=== PATIENT | female | born 1995 | race Caucasian/White ===

== ENCOUNTER 2020-06-03 14:43 | Emergency (ER) | payer OTHER ==
[2020-06-03] MEDS ORDERED: ONDANSETRON HCL INJ/PF 4 MG/2 ML SDV IV ONE (16:34)
[2020-06-03] MEDS ORDERED: NORMAL SALINE 1000 ML 1,000 ML IV ONE (16:35)
--- NOTE | 2020-06-03 16:37 | ER Document Report ---
ED Medical Screen (RME) - General Stated Complaint: VOMITING, ABDOMINAL PAIN, BACK PAIN Time Seen by Provider: 06/03/20 16:34 Notes: HPI: 24-year-old female with history of degenerative disc disease in her back who traveled from [place] 1 week ago to here presenting for 1 week of vomiting states she is thrown up every day for 7 days. 2 times today. Reports pain in the right lower quadrant. Patient states she has had this pain before and she has been worked up for before states they initially told her she had a stomach infection, then they told her she had an ovarian cyst this is over the last several months. Patient has not had a fever. PHYSICAL EXAMINATION: Patient is hyperventilating in the room and very anxious. Patient is tachycardic. She has mild tenderness in the right lower quadrant right pelvis I have greeted and performed a rapid initial assessment of this patient. A comprehensive ED assessment and evaluation of the patient, analysis of test results and completion of medical decision making process will be conducted by an additional ED providers. - Related Data Allergies/Adverse Reactions: Penicillins Allergy (Verified 06/03/20 16:28) topiramate [From Topamax] Allergy (Verified 06/03/20 16:28) Physical Exam - Vital signs Vitals: Temp Pulse Resp BP Pulse Ox 99.6 F 154 H 20 167/77 H 100 06/03/20 14:50 06/03/20 14:50 06/03/20 14:50 06/03/20 14:50 06/03/20 14:50 Course - Vital Signs Vital signs: Temp Pulse Resp BP Pulse Ox 99.6 F 154 H 20 167/77 H 100 06/03/20 14:50 06/03/20 14:50 06/03/20 14:50 06/03/20 14:50 06/03/20 14:50
[2020-06-03 17:33] LABS: ABSOLUTE MONOCYTES (AUTO) 1.1 10^3/uL (0.1-1.4); APPEARANCE,URINE SLIGHTLY-CLOUDY; BASOPHILS % (AUTO) 0.1 % (0-2); BILIRUBIN,URINE NEGATIVE (NEGATIVE); COLOR,URINE YELLOW; GLUCOSE, URINE NEGATIVE (NEGATIVE); HEMATOCRIT 37.4 % (36.0-47.0); HEMOGLOBIN 12.1 g/dL (12.0-15.5); KETONES,URINE TRACE mg/dL (NEGATIVE); LEUKOCYTE ESTERASE,URINE LARGE (NEGATIVE); MEAN CORPUSCULAR HEMOGLOBIN 25.6 pg (27.0-33.4); MEAN CORPUSCULAR HGB CONC 32.5 g/dL (32.0-36.0); MEAN CORPUSCULAR VOLUME 79 fl (80-97); MONOCYTES % (AUTO) 7.8 % (3-13); NITRITE,URINE NEGATIVE (NEGATIVE); PLATELET COUNT 302 10^3/uL (150-450); PROTEIN,URINE 30 mg/dL (NEGATIVE); RED BLOOD COUNT 4.75 10^6/uL (3.72-5.28); RED CELL DISTRIBUTION WIDTH 15.2 % (11.5-14.0); SEGMENTED NEUTROPHILS % (AUTO) 85.1 % (42-78); TOTAL CELLS COUNTED % (AUTO) 100 %; URINE SPECIFIC GRAVITY 1.012; UROBILINOGEN,URINE NEGATIVE mg/dL (<2.0); WHITE BLOOD COUNT 14.1 10^3/uL (4.0-10.5)
--- NOTE | 2020-06-03 17:38 | ER Document Report ---
ED General - General Chief Complaint: Abdominal Pain Stated Complaint: VOMITING, ABDOMINAL PAIN, BACK PAIN Time Seen by Provider: 06/03/20 16:34 - Related Data Allergies/Adverse Reactions: Penicillins Allergy (Verified 06/03/20 16:28) topiramate [From Topamax] Allergy (Verified 06/03/20 16:28) Past Medical History - Social History Smoking Status: Never Smoker Chew tobacco use (# tins/day): No Frequency of alcohol use: None Drug Abuse: None Physical Exam - Vital signs Vitals: Temp Pulse Resp BP Pulse Ox 99.6 F 154 H 20 167/77 H 100 06/03/20 14:50 06/03/20 14:50 06/03/20 14:50 06/03/20 14:50 06/03/20 14:50 Course - Vital Signs Vital signs: Temp Pulse Resp BP Pulse Ox 99.6 F 154 H 20 167/77 H 100 06/03/20 14:50 06/03/20 14:50 06/03/20 14:50 06/03/20 14:50 06/03/20 14:50 - Laboratory Result Diagrams: 06/03/20 17:10 06/03/20 17:10 Laboratory results interpreted by me: 06/03/20 17:10 Urine Protein 30 H Urine Ketones TRACE H Urine Blood SMALL H Ur Leukocyte Esterase LARGE H
[2020-06-03 17:46] LABS: ALBUMIN 4.4 g/dL (3.5-5.0); ALKALINE PHOSPHATASE 68 U/L (38-126); ANION GAP 16 (5-19); ASPARTATE AMINO TRANSFERASE 18 U/L (14-36); BILIRUBIN,TOTAL 0.5 mg/dL (0.2-1.3); BLOOD UREA NITROGEN 11 mg/dL (7-20); CALCIUM 10.5 mg/dL (8.4-10.2); CARBON DIOXIDE 19 mmol/L (22-30); CHLORIDE 105 mmol/L (98-107); GLUCOSE 132 mg/dL (75-110); POTASSIUM 3.7 mmol/L (3.6-5.0); TOTAL PROTEIN 7.6 g/dL (6.3-8.2)
--- NOTE | 2020-06-03 17:55 | ER Document Report ---
ED GI/ - General Chief Complaint: Abdominal Pain Stated Complaint: VOMITING, ABDOMINAL PAIN, BACK PAIN Time Seen by Provider: 06/03/20 16:34 Primary Care Provider: YOCASTA EM [Primary Care Provider] - Follow up as needed Mode of Arrival: Ambulatory Information source: Patient Notes: 24-year-old female past medical history significant for epilepsy, spondylosis, degenerative joint disease, ovarian cyst, presents to the emergency room complaining of nausea, vomiting with right lower quadrant sharp stabbing pain for the past 7 days states pain has been intermittent. Nothing makes it worse, nothing makes it better. States she has been taking Zofran that she takes for chronic nausea without relief of her symptoms. Has been taking ibuprofen for the pain without relief. Did not take any medications today. TRAVEL OUTSIDE OF THE [place] IN LAST 30 DAYS: No - Related Data Allergies/Adverse Reactions: Penicillins Allergy (Verified 06/03/20 16:28) topiramate [From Topamax] Allergy (Verified 06/03/20 16:28) Past Medical History - General Information source: Patient - Social History Smoking Status: Never Smoker Chew tobacco use (# tins/day): No Frequency of alcohol use: None Drug Abuse: None Family History: Reviewed & Not Pertinent Review of Systems - Review of Systems Constitutional: No symptoms reported EENT: No symptoms reported Cardiovascular: No symptoms reported Gastrointestinal: Abdominal pain, Nausea, Vomiting. denies: Diarrhea, Constipation Genitourinary: No symptoms reported Female Genitourinary: No symptoms reported Musculoskeletal: No symptoms reported Skin: No symptoms reported Neurological/Psychological: No symptoms reported -: Yes All other systems reviewed and negative Physical Exam - Vital signs Vitals: Temp Pulse Resp BP Pulse Ox 99.6 F 154 H 20 167/77 H 100 06/03/20 14:50 06/03/20 14:50 06/03/20 14:50 06/03/20 14:50 06/03/20 14:50 - General General appearance: Appears well, Alert In distress: Mild - Respiratory Respiratory status: No respiratory distress Chest status: Nontender Breath sounds: Normal Chest palpation: Normal - Cardiovascular Rhythm: Tachycardia Heart sounds: Normal auscultation Murmur: No - Abdominal Inspection: Normal Distension: No distension Bowel sounds: Normal Tenderness: Nontender Organomegaly: No organomegaly - Back Back: Normal, CVA tenderness - Mild right-sided. No: Vertebra tenderness - Neurological Neuro grossly intact: Yes Cognition: Normal Orientation: AAOx4 Remi Coma Scale Eye Opening: Spontaneous Remi Coma Scale Verbal: Oriented Remi Coma Scale Motor: Obeys Commands [place] Coma Scale Total: 15 Speech: Normal Motor strength normal: LUE, RUE, LLE, RLE Sensory: Normal - Skin Skin Temperature: Warm Skin Moisture: Dry Skin Color: Normal Course - Re-evaluation Re-evalutation: 06/03/20 18:31 Patient is resting comfortably heart rate has improved to 115., She is afebrile, she is nontoxic-appearing, reviewed lab and CT results with patient. Will send urine for culture. Will start IV antibiotics, IV Toradol, patient also states she did not bring her muscle relaxer Robaxin with her. We will give her a dose of p.o. Robaxin. P.o. challenge. And reevaluate. 06/03/20 20:25 Patient is resting comfortably she is currently pain-free. She is able to tolerate p.o. fluids. Case was staffed with ED attending Dr. Bone who is agrees that patient is stable to be discharged home. She will be discharged home on p.o. Cipro, p.o. Zofran, and Robaxin as she left her medication in [place]. Patient was given strict return to the emergency room guidelines. Return for any new or worsening symptoms. All questions were answered. Patient verbalized understanding and agrees with plan of care. 06/03/20 20:46 Upon preparing to discharge patient nurse notify provider that patient was now running a temperature with a heart rate of 125. We will give p.o. Tylenol, another liter of fluid and reevaluate. 06/03/20 22:14 Patient is now afebrile. She is nontoxic-appearing. Tolerates p.o. fluids. Remains slightly tachycardic, heart rate on arrival to the ER was 154, current heart rate 123. She denies any shortness of breath, no difficulty breathing. Patient is extremely anxious. No history of previous DVTs or PEs. No recent surgery. Only form of control is Nexplanon. No recent travel. No risk factors for PE. She is concerned about missing school this week. Counseled patient that I would give her a note for school for the next 3 days. She will continue with her current home medications. Robaxin, Cipro and Zofran as pres cribed. Tylenol as needed for pain. Patient was given strict return to the emergency room guidelines. Return for any new or worsening symptoms. All questions were answered. Patient verbalized understanding and agrees with plan of care. 06/03/20 22:39 06/03/20 22:44 06/03/20 22:48 - Vital Signs Vital signs: Temp Pulse Resp BP Pulse Ox 99.1 F 123 H 17 136/72 H 99 06/03/20 22:12 06/03/20 22:12 06/03/20 22:12 06/03/20 22:12 06/03/20 22:12 - Laboratory Result Diagrams: 06/03/20 17:10 06/03/20 17:10 Laboratory results interpreted by me: 06/03/20 06/03/20 06/03/20 17:10 17:10 17:10 WBC 14.1 H MCV 79 L MCH 25.6 L RDW 15.2 H Lymph % (Auto) 7.0 L Absolute Neuts (auto) 12.0 H Seg Neutrophils % 85.1 H Carbon Dioxide 19 L Glucose 132 H Calcium 10.5 H Urine Protein 30 H Urine Ketones TRACE H Urine Blood SMALL H Ur Leukocyte Esterase LARGE H - Diagnostic Test Radiology reviewed: Reports reviewed - EKG Interpretation by Me Rate: Tachycardia Additional EKG results interpreted by me: 06/03/20 17:54 EKG was interpreted by ER physician Dr. Flores No acute STEMI Sinus tachycardic Rate [address] abnormalities No previous EKGs for comparison Discharge - Discharge Clinical Impression: Pyelonephritis Chronic back pain Qualifiers: Back pain location: low back pain Back pain laterality: midline Sciatica pre sence: without sciatica Qualified Code(s): M54.5 - Low back pain Nausea & vomiting Qualifiers: Vomiting type: unspecified Vomiting Intractability: non-intractable Qualified Code(s): R11.2 - Nausea with vomiting, unspecified Condition: Stable Disposition: HOME, SELF-CARE Instructions: Antinausea Medication ([facility]), Chronic Back Pain ([facility]), Ciprofloxacin ([facility]), Pyelonephritis ([facility]), Vomiting ([facility]) Additional Instructions: Drink plenty of fluids. Tylenol and or Motrin as needed for pain. Cipro, Zofran and Robaxin as needed. Return to the emergency room for any new or worsening symptoms. Prescriptions: Ciprofloxacin HCl [Cipro 500 mg Tablet] 500 mg PO BID 7 Days #14 tablet Methocarbamol [Robaxin 500 mg Tablet] 500 mg PO QID PRN #20 tablet PRN Reason: For Back Pain Ondansetron [Zofran Odt 4 mg Tablet] 1 tab PO Q4H PRN #12 tab.rapdis PRN Reason: For Nausea/Vomiting Forms: Return to School Referrals: LOCALMD,NO [Primary Care Provider] - Follow up as needed
--- NOTE | 2020-06-03 18:08 | RADIOLOGY REPORT (SQ) ---
EXAM DESCRIPTION: CT ABD/PELVIS WITH IV ONLY IMAGES COMPLETED DATE/TIME: 06/03/2020 5:48 pm REASON FOR STUDY: RLQ pain COMPARISON: None. TECHNIQUE: CT scan of the abdomen and pelvis performed using helical scanning technique with dynamic intravenous contrast injection. No oral contrast. Images reviewed with lung, soft tissue, and bone w indows. Reconstructed coronal and sagittal MPR images reviewed. Delayed images for evaluation of the urinary system also acquired. All images stored on PACS. All CT scanners at this facility use dose modulation, iterative reconstruction, and/or weight based d osing when appropriate to reduce radiation dose to as low as reasonably achievable (ALARA). [facility]: Dose Right [facility]: CareDose [facility]: Dose Right [facility]: Teradose 4D [facility]: [employer] CONTRAST TYPE AND DOSE: contrast/concentration: Isovue 350.00 mmol/ml; Total Contrast Delivered: 74. 0 ml; Total Saline Delivered: 66.9 ml RENAL FUNCTION: None required. The patient is less than 50 years old. RADIATION DOSE: CT Rad equipment meets quality standard of care and radiation dose reduction techniq ues were employed. CTDIvol: 5.3 - 6.2 mGy. DLP: 630 mGy-cm.. LIMITATIONS: None. FINDINGS: LOWER CHEST: No significant findings. LIVER: Normal size. No enhancing masses. No dilated ducts. SPLEEN: Normal size. No focal lesions. PANCREAS: No masses identified. No significant calcifications. No adjacent inflammation or peripancre atic fluid collections. Pancreatic duct not dilated. GALLBLADDER: No calcified stones. No inflammatory changes to suggest cholecystitis. ADRENAL GLANDS: No significant masses. RIGHT KIDNEY AND URETER: No cysts identified. No solid masses identified. No calcified stones. Enhan cing mildly dilated right upper ureter with a small area of right lower pole renal parenchymal hypode nsity, suggesting ascending urinary tract infection and possible early pyelonephritis. LEFT KIDNEY AND URETER: No cysts identified. No solid masses identified. No calcified stones. No hydr onephrosis or hydroureter. AORTA AND VESSELS: No aneurysm. No dissection. Renal arteries, SMA, celiac without significant stenos is. RETROPERITONEUM: No bulky retroperitoneal adenopathy. BOWEL AND PERITONEAL CAVITY: No obstruction or inflammatory changes. No free fluid. APPENDIX: Normal. PELVIS: No mass. No free fluid. Unremarkable bladder. ABDOMINAL WALL: No masses. No hernias. BONES: No acute findings. OTHER: No other significant finding. IMPRESSION: Enhancing mildly dilated right upper ureter with a small area of right lower pole renal parenchymal hypodensity, suggesting ascending urinary tract infection and possible early pyelonephri tis. No calcified stones. TECHNICAL DOCUMENTATION: JOB ID: [id number] [id number] Quality ID # [id number]: Final reports with documentation of one or more dose reduction techniques (e.g., Au tomated exposure control, adjustment of the mA and/or kV according to patient size, use of iterative reconstruction technique) 2010 [employer]- All Rights Reserved Reading location - IP/workstation name: [employer]
[2020-06-03] MEDS ORDERED: CIPROFLOXACIN 400 MG/D5W RTU 400 MG/200 ML RTUPB IV ONE (18:17)
[2020-06-03] MEDS ORDERED: KETOROLAC TROMETHAMINE INJ/PF 30 MG/1 ML SDV IV ONE (18:29)
[2020-06-03] MEDS ORDERED: METHOCARBAMOL 500 MG TABLET PO ONE (18:29)
--- NOTE | 2020-06-03 18:59 | EKG REPORT ---
SEVERITY:- OTHERWISE NORMAL ECG - SINUS TACHYCARDIA : Confirmed by: Karen Thao MD 03-Jun-2020 18:59:23
[2020-06-03] MEDS ORDERED: ACETAMINOPHEN 325 MG TABLET PO ONE (20:45)
[2020-06-03] MEDS ORDERED: RINGERS SOLUTION,LACTATED 1,000 ML IV ONE (20:46)
[2020-06-03 22:12] VITALS: BP 136/72
== END 2020-06-03 22:54 | disposition home or self-care (01) ==
LOC: ER 14:43
DX: N12 Tubulo-interstitial nephritis, not specified as acute or chronic (principal); R11.2 Nausea with vomiting, unspecified; R10.31 Right lower quadrant pain; R00.0 Tachycardia, unspecified; M54.5 Low back pain; G89.29 Other chronic pain; Z79.899 Other long term (current) drug therapy; Z97.5 Presence of (intrauterine) contraceptive device; Z88.0 Allergy status to penicillin; Z88.6 Allergy status to analgesic agent
CPT/HCPCS: 93005; 99285; 96361; 96375; 96365; 96366; 36415; 87086; 83690; 84703; 85025; 87088; 80053; 81001; 87186; 74177; 93010; J1885; J2405; J7030; J7120; J0744